=== PATIENT | male | born 2000 | race Caucasian/White ===

== ENCOUNTER 2022-05-19 12:59 | Emergency (ER) | payer OTHER, SELFPAY ==
[2022-05-19 13:01] VITALS: BP 107/57; PULSE 87; RESP 18; TEMP 36.7; O2SAT 98
--- NOTE | 2022-05-19 13:30 | ED.VIS.GI ---
HPI HPI - GI History of Present Illness Chief Complaint: Nausea/Vomiting Informant: patient and parent Nausea/Vomiting/Emesis GI Symptom: Positive for Nausea and Vomiting Onset: Weeks Severity: Mild Diarrhea/Melena/Hematochezia GI Symptom: Positive for Diarrhea; Negative for Melena or Hematochezia Onset: Weeks Stool Quality: Positive for Loose Severity: Mild Associated Symptoms Associated Symptoms: Negative for Dysuria, Frequency or Hematuria Narrative Narrative: 22-year-old male with history of anxiety, depression, bipolar, ADHD, previously diagnosed with an eating disorder. States has had nausea vomiting diarrhea intermittently for last 2 weeks. In the last 1-1/2 years he has lost around 60 pounds. She is denies any hematemesis or melena. No fever. No abdominal pain. Patient does admit to using marijuana. Prior similar symptoms: Yes Recent Illness/Hospitalization: No PFSH PFSH Home Medications aripiprazole 5 mg tablet 5 mg PO DAILY 05/19/22 [History Last Taken Unknown] bupropion HCl 150 mg 24 hr tablet, extended release 150 mg PO DAILY 05/19/22 [History Last Taken Unknown] famotidine 20 mg tablet 20 mg PO DAILY 05/19/22 [History Last Taken Unknown] omeprazole 20 mg capsule,delayed release 20 mg PO DAILY 05/19/22 [History Last Taken Unknown] ondansetron 4 mg disintegrating tablet 4 mg PO Q4H PRN nausea and vomiting #10 tabs 05/19/22 [Rx Last Taken Unknown] trazodone 150 mg tablet 150 mg PO QHS 05/19/22 [History Last Taken Unknown] Allergy/AdvReac Type Severity Reaction Status Date / Time No Known Allergies Allergy Verified 05/19/22 13:03 Social History Smoking Status: Never smoker ROS ROS ED ROS Narrative Intermittent nausea, vomiting diarrhea. Review of Systems ROS Unobtainable: Denies due to encephalopathy Constitutional Constitutional ED: Denies chills or fever(s) ENT ENT ED: Denies ear pain Cardiovascular Cardiovascular: Denies chest pain Respiratory/Chest Respiratory/Chest: Denies cough Gastrointestinal Gastrointestinal: Reports constipation, diarrhea, nausea and vomiting; Denies abdominal pain or melena Genitourinary Genitourinary ED: Denies dysuria or hematuria Musculoskeletal Musculoskeletal: Denies arthralgias Integumentary Denies abscess Neurologic Neurologic: Denies headache(s) Psychiatric Psychiatric: Denies anxiety Endocrine Endocrinology: Denies polydipsia Hematologic/Lymphatic Hematologic/Lymphatic: Denies easy bleeding Allergic/Immunologic Allergic/Immunologic ED: Denies mouth swelling or tongue swelling EXAM Physical Exam Narrative Exam Narrative: 22-year-old male no acute distress. Vital signs stable afebrile. He does not look septic or toxic. He does not look significantly dehydrated. H EENT exam unremarkable. Matrixectomies. Neck nontender no lymphadenopathy. Lungs clear to auscultation bilaterally. Heart regular rhythm rate about 85 no murmur. Chest wall nontender. Abdomen soft nontender. Normal bowel sounds no peritoneal signs. No localizing tenderness. Both the right upper and right lower quadrants are unremarkable. No hernia or mass. No distention. Patient moving all 4 extremities. Calves are nontender without edema. Neurologically he is awake alert with no focal motor deficits. Back nontender. Skin unremarkable. No rashes. Const Vital Signs: 05/19/22 13:01 05/19/22 15:11 Temperature 98.1 F Temperature Source Temporal Pulse Rate 87 Respiratory Rate 18 16 Blood Pressure 107/57 L Blood Pressure Mean 73 Pulse Ox 98 Oxygen Delivery Method Room Air Positive well nourished and well developed; Negative for obese, cachectic, contractures or unkempt General Appearance ED: well developed and NAD; Negative for unkempt, cachectic, contractures or pallor Nutritional Appearance: Negative for cachectic or obese HEENT Reports moist mucous membranes; Denies dry mucous membranes normocephalic and atraumatic; Negative for trauma or tenderness Mouth ED: No dry mucous membranes Mouth: No dry mucous membranes Eyes PERRL and EOMs intact bilaterally General Eye ED: Negative for pale conjunctiva or scleral icterus Neck no lymphadenopathy, supple and no JVD General: Negative for tenderness Carotids: Negative for other Lymph Lymphatic: Negative for other Resp normal respiratory effort and clear to auscultation bilaterally Effort and Inspection: Negative for respiratory distress Auscultation: Negative for rales, rhonchi or wheezes Cardio regular rate, regular rhythm, S1 normal heart sound, S2 normal heart sound and no murmurs Rate: Negative for bradycardia or tachycardic GI non-tender, non-distended and no masses Inspection: Negative for abdominal distention Auscultation: normoactive bowel sounds Palpation: soft; Negative for tender, guarding, rigid, hepatomegaly, splenomegaly, hernia, mass, pulsatile mass or rebound tenderness present Back/Spine no CVA tenderness General Back: Negative for CVA tenderness Cervical Spine: Negative for cervical spine tenderness Thoracic Spine / Upper Back: Negative for thoracic spinal tenderness Lumbar Spine / Lower Back: Negative for lumbar spinal tenderness Coccyx: Negative for other Extremity full ROM General Extremety ED: Negative for edema or tenderness General Extremity: Negative for edema Neuro CN's II-XII intact bilaterally, moves all extremities and no sensory deficits noted Sensorium / Orientation: alert, oriented to person, oriented to place and oriented to time; Negative for orientation impaired, confused, lethargic or stuporous Motor Exam: strength 5/5 throughout Psych mental status grossly normal and thought process normal Appearance: Negative for unkempt Attitude: No agitated Mood & Affect: Negative for depressed, anxious or tearful Skin no wounds General Skin Exam: Negative for jaundice or pallor Lesions: no lesions and No lesion noted Rashes: no rashes Trauma: Negative for abrasion Nails: Negative for discolored MDM MDM MDM Narrative Medical decision making narrative: 22-year-old male with underlying mental health diagnoses along with an eating disorder. He also uses marijuana. The nausea, vomiting diarrhea may be related to his eating disorder versus cyclic vomiting versus his psychiatric illness. Clinically his exam is benign. Be treated with a liter of fluid. Zofran for nausea. Screening labs will be obtained. He does not need imaging at this time. There is [place] no abdominal tenderness. Exam patient doing well at 3:20 PM. Abdomen benign. Nausea resolved. He and I and his mother discussed all test results. He will follow-up with GI. He was instructed to stop all marijuana use that could be the cause of his nausea and vomiting could also be from his eating disorder or his mental health issues. He will be written for additional Zofran for home. He is already on Pepcid and omeprazole. Lab Data Attestation: I reviewed the patient's lab results. Lab results narrative: CBC normal. White count of 5.2. H&H 13.8 and 42. Platelets 206. Electrolytes unremarkable gap for normal BUN and creatinine. Liver enzymes are normal. Glucose 110. Lipase normal at 90. Labs: Laboratory Results - last 24 hr 02/14/23 02/14/23 13:35 13:35 WBC 5.2 RBC 4.72 Hgb 13.8 Hct 42.1 MCV 89.2 MCH 29.2 MCHC 32.8 RDW Std Deviation 42.6 RDW Coeff of Jared 13.0 Plt Count 206 MPV 9.3 Immature Gran % (Auto) 0.200 Neut % (Auto) 60.7 Lymph % (Auto) 24.8 [place] % (Auto) 8.7 Eos % (Auto) 4.6 Baso % (Auto) 1.0 Absolute Neuts (auto) 3.1 Absolute Lymphs (auto) 1.28 Nucleated RBC % 0.4 Sodium 139 Potassium 4.2 Chloride 104 Carbon Dioxide 31.0 Anion Gap 4 L BUN 11 Creatinine 0.87 Estim Creat Clear Calc 124.43 Est GFR (MDRD) Af Amer 144 Est GFR (MDRD) Non-Af 119 BUN/Creatinine Ratio 12.7 Glucose 110 H Calcium 8.9 Total Bilirubin 0.40 AST 13 L ALT 29 Alkaline Phosphatase 70 Total Protein 6.8 Albumin 3.8 Globulin 3.0 Albumin/Globulin Ratio 1.3 Lipase 90 Discharge Plan Triage Chief Complaint: Nausea/Vomiting ED Provider: Yury Crane Dx/Rx/DC Orders Clinical Impression: Vomiting, Cyclic vomiting syndrome, History of eating disorder Instructions: ED Cyclic Vomiting Syndrome, ED Vomiting (Adult) Prescriptions: New ondansetron 4 mg tablet,disintegrating 4 mg PO Q4H PRN (Reason: nausea and vomiting) Qty: 10 0RF No Action famotidine 20 mg Tablet 20 mg PO DAILY trazodone 150 mg Tablet 150 mg PO QHS omeprazole 20 mg Capsule,Delayed Release(Dr/Ec) 20 mg PO DAILY aripiprazole 5 mg Tablet 5 mg PO DAILY bupropion HCl 150 mg Tablet Extended Release 24 Hr 150 mg PO DAILY Primary Care Provider: RUSSELL BALBUENA Referrals: Ligia Lanier MD [Non-Staff] - As soon as possible RUSSELL BALBUENA DO [Primary Care Provider] - 3-5 Days if not improving Frantz Alejo DO [Med Staff - Active Staff] - As soon as possible Activity Restrictions/Additional Instructions: Plenty fluids and rest. [place] diet increase slowly as tolerated. Many different possible causes for your nausea and vomiting. Could be from your eating disorder for which she should follow-up with counseling. May be from use of marijuana must be stopped completely or could cause recurrent vomiting. Zofran as needed for nausea. Call and follow-up with one of the GI doctors. Disposition Disposition: Home, Self Care
[2022-05-19] MEDS: Ondansetron 4 MG/2 ML Vial IV (13:37)
[2022-05-19] MEDS: 0.9% Normal Saline 1,000 ML 1000 ML IV (13:37)
[2022-05-19 13:40] LABS: Absolute Lymphocyte Count 1.28 X10^3/uL (0.83-4.51); Absolute Neutrophil Count 3.1 X10^3/uL (2.0-7.7); Basophil# 0.05 X10^3/uL; Eosinophil# 0.24 X10^3/uL; Eosinophils% 4.6 % (0-5); Hematocrit 42.1 % (40-54); Hemoglobin 13.8 g/dL (13.0-16.5); Lymphocyte # 1.28 X10^3/ul (0.83-4.51); Lymphocyte % 24.8 % (19-41); Mean Corp Hgb Conc 32.8 g/dL (32-36); Mean Corpuscular Hgb 29.2 pg (27.0-32.0); Mean Corpuscular Volume 89.2 fL (80-94); Mean Platelet Vol. 9.3 fl (6.2-12.0); Monocyte# 0.45 X10^3/uL; Monocyte% 8.7 % (0-10); NRBC Flagged by Analyzer 0.4 % (0-5); Neutrophil # 3.14 X10^3/uL (2.7-7.7); Neutrophil % 60.7 % (47-70); Platelet Count 206 K/mm3 (150-450); RBC Distribution Width SD 42.6 fl (35.1-43.9); Red Blood Count 4.72 M/mm3 (4.6-6.2); White Blood Count 5.2 K/mm3 (4.4-11.0)
[2022-05-19 14:04] LABS: ALB/GLOB Ratio 1.3 RATIO (0.9-2.4); AST(SGOT) 13 U/L (15-37); Alanine Aminotransfer ALT/SGPT 29 U/L (16-61); Albumin, Serum 3.8 g/dL (3.2-5.0); Alkaline Phosphatase 70 U/L (45-117); Anion Gap 4 (5-15); BUN 11 mg/dL (7-18); BUN/Creat Ratio 12.7 RATIO (10-20); Calcium,Total 8.9 mg/dL (8.5-10.1); Chloride 104 mmol/L (98-107); Creatinine, Serum 0.87 mg/dL (0.70-1.30); EST Glomerular Filtration Rate 119 mL/min (>60); Est Glom Filt Rate - Afr Amer 144 mL/min (>60); Estimated Creatinine Clearance 124.43 ml/min; Glucose 110 mg/dL (74-106); Lipase 90 U/L (73-393); Potassium 4.2 mmol/L (3.5-5.1); Protein, Total 6.8 g/dL (6.4-8.2); Sodium Level 139 mmol/L (136-145)
[2022-05-19 15:11] VITALS: RESP 16
== END 2022-05-19 16:06 | disposition home or self-care (01) ==
PROVIDERS: Emergency Provider Emergency Medicine; PCP Family Medicine; Visit Provider Emergency Medicine
DX: R11.15 Cyclical vomiting syndrome unrelated to migraine (principal); F41.9 Anxiety disorder, unspecified; F12.90 Cannabis use, unspecified, uncomplicated; R19.7 Diarrhea, unspecified
CPT/HCPCS: 80053; 83690; 85025; 96361; 96374; 99283; J7030; A4216; J2405